=== PATIENT | female | born 1955 | race Caucasian/White ===

== ENCOUNTER 2024-04-03 06:58 | Emergency (ER) | payer MEDICARE, MEDICAID, SELFPAY ==
[2024-04-03 07:00] VITALS: BP 130/89; PULSE 92; RESP 20; TEMP 36.8; O2SAT 92
[2024-04-03 07:35] VITALS: PULSE 88; RESP 18; O2SAT 97; BMI 33.2
--- NOTE | 2024-04-03 08:20 | PD.EDSOB ---
ED SOB =RME/HPI General Chief Complaint: Shortness of Breath/Dyspnea Stated Complaint: SOB AND NEEDS DIALYSIS Time Seen by Provider: 04/03/24 07:31 Arrival date/time: 04/03/24 06:58 RME / HPI RME / HPI Narrative: DR. GOODEN MAIN ED EVALUATION: 68 year old female with past medical history significant for renal disease with dialysis T//Sat with Dr. Rodriguez and COPD on 3 L/min via a nasal cannula presents to the Emergency Department BIBA sent from dialysis unable to complete her dialysis session today due to catheter malfunction. Otherwise, patient is asymptomatic. Patient states that she is due to get it changed anyway. Related Data Home Medications ?Medication ?Instructions ?Recorded ?Confirmed furosemide 80 mg tablet 80 mg PO QDAY ##0 04/28/15 07/24/23 albuterol sulfate 90 mcg/actuation 1 puff inhalation Q6HR PRN 05/23/21 07/24/23 aerosol inhaler (Proventil HFA) SHORTNESS OF BREATH empagliflozin 10 mg tablet 10 mg PO QAM 05/23/21 07/24/23 (Jardiance) ergocalciferol (vitamin D2) 1,250 1,250 mcg PO QWEEK 05/23/21 07/24/23 mcg (50,000 unit) capsule omeprazole 20 mg capsule,delayed 20 mg PO QDAY 05/23/21 07/24/23 release gemfibrozil 600 mg tablet 600 mg PO 2XD 05/24/23 07/24/23 levothyroxine 75 mcg tablet 75 mcg PO QMORNING 05/24/23 07/24/23 potassium chloride 8 mEq 8 meq PO 3XD 05/24/23 07/24/23 tablet,extended release Previous Rx's ?Medication ?Instructions ?Recorded allopurinol 100 mg tablet 100 mg PO QDAY #30 tabs 06/03/23 hydralazine 25 mg tablet 50 mg (2 x 25 mg) PO TID #90 tabs 06/03/23 sevelamer carbonate 800 mg tablet 800 mg PO QDAY #30 tabs 06/03/23 sodium citrate-citric acid 500 30 ml PO TID #600 mL 06/03/23 mg-334 mg/5 mL oral solution Allergies Allergy/AdvReac Type Severity Reaction Status Date / Time benazepril Allergy Severe Rash Verified 02/27/17 19:06 ceftriaxone sodium Allergy Severe Rash Verified 02/27/17 19:06 Cephalosporins Allergy Severe Rash Verified 02/27/17 19:06 clindamycin Allergy Severe Rash Verified 02/27/17 19:06 codeine Allergy Severe Rash Verified 02/27/17 19:06 erythromycin base Allergy Severe Rash Verified 02/27/17 19:06 Penicillins Allergy Severe Rash Verified 02/27/17 19:06 Sulfa (Sulfonamide Allergy Severe Rash Verified 02/27/17 19:06 Antibiotics) sulfamethoxazole Allergy Severe Rash Verified 02/27/17 19:06 trimethoprim Allergy Severe Rash Verified 02/27/17 19:06 Review of Systems Review of Systems Systems Reviewed: All systems reviewed, normal except as documented Narrative Review of Systems: GEN: No fever, no chills, no weight loss EYES: No discharge, no visual changes, no pain HEENT: No ear pain, no congestion, no sore throat PULM: No shortness of breath, no cough, no congestion CV: No chest pain, no dyspnea on exertion, no palpitations GI: No nausea, no vomiting, no diarrhea, no pain, no constipation : No frequency, no urgency and no dysuria MUSC/SKEL: No joint pain, no back pain SKIN: No rash PSYCH: No hallucinations, no depression HEME/LYMPH: No easy bleeding or bruising tendencies NEURO: No weakness, no headache Past Medical History Past Medical History CARDIAC: Positive Cardiac Disorders, Hypercholesterolemia, Congestive Heart Failure and Hypertension RESPIRATORY: Positive Chronic Obstructive Pulmonary Disease (COPD) MUSCULOSKELETAL: Positive Musculoskeletal Disorders and Gout ENDOCRINE: Positive Diabetes Mellitus Type 2 and Hypothyroidism PSYCHO/SOCIAL: Positive Depression and Anxiety OTHER HISTORY: Positive Blood Transfusions Social History SMOKING STATUS: Current every day smoker SECOND HAND EXPOSURE: No SUBSTANCE USE: does not use ALCOHOL: Never ED Exam Narrative Physical exam: GENERAL APPEARANCE: AxOx4, generally well-appearing, no acute distress. HEENT: NC, AT. MMM. EOMI, clear conjunctiva, oropharynx clear. NECK: Supple without lymphadenopathy. No stiffness or restricted ROM. HEART: Normal rate and regular rhythm, normal S1/S1, no m/r/g LUNGS: Coarse rhonchi auscultated but in no respiratory distress. No wheezes are heard. ABDOMEN: Soft, nontender, nondistended with good bowel sounds heard. BACK: No midline C/T/L spine pain or deformity, No CVAT, no obvious deformity. EXTREMITIES: Without cyanosis, clubbing or edema. MUSCULOSKELETAL: FROM of all major joints, no chest tenderness NEUROLOGICAL: Grossly nonfocal. Alert and oriented, moving all 4 extremities. CN not formally tested but appear grossly intact. Observed to ambulate with normal gait. Skin: Warm and dry without any rash. Course Course Course Narrative: I offered the patient a breathing treatment for her coarse breathing but she denied and states she is asymptomatic and that is her normal breathing. Quality Measures none Orders Category Date Time Status BMP [Basic Metabolic Panel] Stat Lab 04/03/24 09:25 Completed Vital Signs Vital signs: Vital Signs Temperature 98.2 F 04/03/24 07:00 Pulse Rate 92 04/03/24 07:00 Respiratory Rate 20 04/03/24 07:00 Blood Pressure 130/89 H 04/03/24 07:00 Pulse Oximetry (%) 92 L 04/03/24 07:00 Oxygen Delivery Method Nasal Cannula 04/03/24 07:00 Oxygen Flow Rate 4 04/03/24 07:00 Procedures -ED Smoking Cessation Time Spent Discussing Smoking Cessation w/Patient (min): 3 Patient Acknowledges Need for Cessation: Yes Additional Comments: The patient was counseled as to the multiple risks to their health from continued use of tobacco products. It was explained that continuing to smoke may lead to multiple short and assisted negative health consequences, including but not limited to mouth/esophageal/lung cancer, COPD, and heart disease. The patient states they understand these risks, and also understand the options and resources available to them to help them stop smoking. Nicotine replacement therapy, local hotlines, and local resources were discussed as viable options for helping them stop their tobacco use. The total time spent counseling the patient regarding tobacco cessation was 3 minutes. Shortness of Breath / Dyspnea MDM Narrative MDM Narrative:: I, Kathrin Dumont, am scribing for and in the presence of Dr. Gooden. Patient data External records reviewed:: [facility] previous records (Reviewed last admission discharge dated 07/26/23, patient admitted for the following: Acute hyperkalemia) and EMS form Clinical information provided by:: patient and EMS Social determinants that could affect healthcare access:: other (specify) (tobacco smoker, light) Patient has the following chronic illnesses:: renal disease with dialysis T/Th/Sat with Dr. Rodriguez and COPD on 3 L/min via a nasal cannula How is presenting disease/condition affected by chronic disease/condition?: exacerbated by Evaluation data The following diagnostics were reviewed and interpreted by me:: lab results Lab and/or radiology exams considered but not ordered:: none Interpretation Summary: See above under MDM narrative. Creatine 8.2 eGFR 5 L* Medications / Prescriptions Medications or Prescriptions considered but not ordered:: none Medication administrations:: none Consultations Consultation(s) initiated? (list below): No Diagnosis Shortness of Breath Differential Diagnosis: congestive heart failure and other (dialysis malfunction, hyperkalemia) Most likely diagnosis given after review of the tests above:: Dialysis catheter clot or failure Admission Indicated Admission indicated?: not indicated Admission Request Was there a request for admission?: No Disposition Plan Disposition Plan: Discharge Discharge Attestation Discharge Attestation: The patient and all family members were given an opportunity to ask questions and understood the discharge instructions. Discharge instructions specifically effects, indications for sooner follow up or return to the emergency department, and the expected course of current diagnosis. Patient condition: Stable Discharge Plan Plan Patient Disposition: HOME (Self Care) Prescriptions/Referrals Prescriptions/Med Rec: No Action furosemide 80 MG tablet 80 mg PO QDAY Qty: 0 omeprazole 20 mg capsule,delayed release(DR/EC) 20 mg PO QDAY Patient Comments: TAKE ONE TABLET BY MOUTH EVERY DAY ergocalciferol (vitamin D2) 1,250 mcg (50,000 unit) capsule 1,250 mcg PO QWEEK Patient Comments: TAKE ONE CAPSULE BY MOUTH ONCE A WEEK Jardiance 10 mg tablet 10 mg PO QAM Patient Comments: TAKE ONE TABLET BY MOUTH EVERY MORNING albuterol sulfate [Proventil HFA] 6.7 GM HFA aerosol inhaler 1 puff Inhalation Q6HR PRN (Reason: SHORTNESS OF BREATH) levothyroxine 75 mcg tablet 75 mcg PO QMORNING Patient Comments: TAKE ONE TABLET BY MOUTH EVERY MORNING FOR THYROID potassium chloride 8 mEq tablet extended release 8 meq PO 3XD Patient Comments: TAKE ONE TABLET BY MOUTH THREE TIMES DAILY WITH FOOD gemfibrozil 600 mg tablet 600 mg PO 2XD Patient Comments: TAKE ONE TABLET BY MOUTH TWICE DAILY FOR CHOLESTEROL allopurinol 100 mg Tablet 100 mg PO QDAY Qty: 30 0RF sodium citrate-citric acid 500-334 mg/5 mL Solution 30 ml PO TID Qty: 600 0RF hydralazine 25 mg Tablet 50 mg PO TID Qty: 90 0RF sevelamer carbonate 800 mg tablet 800 mg PO QDAY Qty: 30 0RF Rx Instructions: must administer with a meal/food Referrals: No Primary/Family,Physician [Primary Care Provider] - In 1 week Problem List Clinical Impression: Dialysis catheter clot or failure Patient/Caregiver Discharge Instructions Education Materials: Caring for Your Hemodialysis Access Additional Instructions: Please return to the emergency department Friday morning in order to arrange for replacement of your permanent dialysis tunneled catheter. Feel free return to the emergency department sooner symptoms worsen or if he notes any new or concerning issues. Print Language: Tajik Stand Alone Forms: [facility]una Award Info., Patient Portal Info Letter
[2024-04-03 10:01] LABS: Anion Gap 14 (7-16); BUN/Creatinine Ratio 7 Ratio (12-20); Blood Urea Nitrogen 58 mg/dL (9-23); Calcium 8.6 mg/dL (8.3-10.6); Chloride 94 mMol/L (98-107); Creatinine (Component) 8.2 mg/dL (0.6-1.3); Estimated Creatinine Clearance 5.9 mL/min (>60); Glucose 104 mg/dL (74-106); Osmolality,Calculated 284 (275-295); Sodium 134 mMol/L (136-145); eGFR 5 See Note
[2024-04-03 10:13] VITALS: BP 121/66; PULSE 70; RESP 18; TEMP 36.7; O2SAT 97
== END 2024-04-03 12:43 | disposition home or self-care (01) ==
PROVIDERS: Emergency Provider Emergency Medicine
DX: T82.41XA Breakdown (mechanical) of vascular dialysis catheter, initial encounter (principal); N18.6 End stage renal disease; E11.22 Type 2 diabetes mellitus with diabetic chronic kidney disease; I13.2 Hypertensive heart and chronic kidney disease with heart failure and with stage 5 chronic kidney disease, or end stage renal disease; I50.9 Heart failure, unspecified; E03.9 Hypothyroidism, unspecified; J44.9 Chronic obstructive pulmonary disease, unspecified; Z99.2 Dependence on renal dialysis; Z99.81 Dependence on supplemental oxygen; F17.210 Nicotine dependence, cigarettes, uncomplicated; Y82.8 Other medical devices associated with adverse incidents; Y84.8 Other medical procedures as the cause of abnormal reaction of the patient, or of later complication, without mention of misadventure at the time of the procedure
CPT/HCPCS: 36415; 80048; 99283

== ENCOUNTER 2024-04-05 07:09 | Emergency (ER) | payer MEDICARE, MEDICAID, SELFPAY ==
[2024-04-05] VITALS (33 sets, daily range): BP systolic 92–171; BP diastolic 40–89; PULSE 60–83; RESP 12–21; TEMP 36–37; O2SAT 90–99; BMI 32.9
--- NOTE | 2024-04-05 | XR_ITS ---
Exam: Exchange of nonfunctioning right lumen dialysis catheter. INDICATION: Catheter not working. Date, 04/05/2024, 10:55 AM Fluoroscopy time: 0.9 minutes Dose: 11.14 mGy PROCEDURE: After discussion of risks and benefits informed consent was obtained. The area around the existing right-sided dialysis catheter was cleaned and draped in normal sterile surgical fashion. 10 cc 1% lidocaine was used for local anesthesia. Conscious sedation was begun with direct continuous nursing supervision. 0.035 wire was advanced through the catheter lumen into the IVC. The cuff was freed via blunt dissection. Catheter was removed with gentle traction. A new 23 cm cuff to tip 14 Czech dual lumen dialysis catheter was advanced over the wire and the wire removed. Distal catheter tips were appropriately positioned in the right atrium. Both ports flushed and aspirated easily and were filled with the appropriate amount of heparinized saline. Access site was covered with a sterile dressing. There were no immediate complications. IMPRESSION: Successful exchange of right IJ dual-lumen tunneled dialysis catheter as above. Catheter is ready for use.
--- NOTE | 2024-04-05 07:54 | PD.EDADULT ---
ED General RME/HPI General Chief complaint: General Adult/Misc Complain Stated complaint: RETURNING FOR REPLACEMENT OF DIALYSIS CATH Time Seen by Provider: 04/05/24 07:54 Arrival date/time: 04/05/24 07:09 RME / HPI RME / HPI narrative: This section includes all my notes and documentations, including HPI, PE, and ED course.? Martín Mayberry MD HPI: 68 year old female with history of COPD, ESRD on HD followed by Dr. Rodriguez presents to the ED for dialysis catheter replacement. Patient states she was brought here by ambulance from the dialysis clinic Monday 04/03 for dialysis port malfunction. States she did not complete her dialysis treatment and has not been dialyzed since. Evidently was advised to return today for port replacement. While in the ED reports shortness of breath and a cough that is slightly worse than her usual. Otherwise no other complaints reported. ROS: All negative except as documented in HPI. Physical Exam: General:? Alert and oriented.? No acute distress when remaining still.?? Eyes:? Conjunctivae and lids clear.? ENT:? No nasal congestion.? Neck:? Supple.? Heart:? RRR.? Lungs:? No respiratory distress.? Good air movement.? No rhonchi, wheezing, rales.?? Abdomen:? Soft and nontender.?? Legs:? No clubbing, cyanosis, edema.? Skin:? Warm and dry.?? Neuro:? Alert and oriented X 3.?? I reviewed all diagnostic test results. My interpretation of the EKG is?Sinus rhythm (57 bpm) with nonspecific ST-T changes. My interpretation of the chest x-ray is mild to moderate central vascular congestion. Blood tests remarkable for BUN 65, CR 9.7, and BNP 512. At this point, diagnoses include?ESRD, CHF. Patient's PICC line replaced by our IR. I discussed the case with our silk examiner, Dr. Rodriguez.? About the presentation and exam and diagnostics and treatments here.? And possible need of further care in the hospital.? Recommended outpatient urgent dialysis. Based on my best medical judgment, made decision no further evaluation or treatment indicated at this time.? Patient understands and agrees to the discharge instructions customized and printed, see below. Discharge Instructions from Dr. Mayberry printed for you: 1. After evaluation, your symptoms are due to CHF or fluid overload in your lungs. 2. Discussed your case with Dr. Rodriguez, your kidney specialist, who recommended urgent dialysis today at your dialysis center. She called to let the staff know. 3. See your primary care provider on 04/06/2024 for recheck and further care. Ask to review all test results and official radiology reports, to make sure you receive all necessary follow-ups and monitoring. To make sure there is no serious underlying heart condition, ask to help you get more tests for your heart that cannot be done here in the ER. Such as Holter Monitor (cardiac monitoring at home from a day to even a month), heart stress test (on treadmill or with medication), echocardiogram (imaging of your heart structures), heart catherization (checking for blockages in your heart arteries), and a referral to see a Bus Driver/Monitor. 4. Seek immediate medical care with worsening or with any concerns. Martín Mayberry MD Related Data Home Medications ?Medication ?Instructions ?Recorded ?Confirmed furosemide 80 mg tablet 80 mg PO QDAY ##0 04/27/07/24/23 albuterol sulfate 90 mcg/actuation 1 puff inhalation Q6HR PRN 05/23/21 07/24/23 aerosol inhaler (Proventil HFA) SHORTNESS OF BREATH empagliflozin 10 mg tablet 10 mg PO QAM 05/23/21 07/24/23 (Jardiance) ergocalciferol (vitamin D2) 1,250 1,250 mcg PO QWEEK 05/23/21 07/24/23 mcg (50,000 unit) capsule omeprazole 20 mg capsule,delayed 20 mg PO QDAY 05/23/21 07/24/23 release gemfibrozil 600 mg tablet 600 mg PO 2XD 05/24/23 07/24/23 levothyroxine 75 mcg tablet 75 mcg PO QMORNING 05/24/23 07/24/23 potassium chloride 8 mEq 8 meq PO 3XD 05/24/23 07/24/23 tablet,extended release Previous Rx's ?Medication ?Instructions ?Recorded allopurinol 100 mg tablet 100 mg PO QDAY #30 tabs 06/03/23 hydralazine 25 mg tablet 50 mg (2 x 25 mg) PO TID #90 tabs 06/03/23 sevelamer carbonate 800 mg tablet 800 mg PO QDAY #30 tabs 06/03/23 sodium citrate-citric acid 500 30 ml PO TID #600 mL 06/03/23 mg-334 mg/5 mL oral solution Allergies Allergy/AdvReac Type Severity Reaction Status Date / Time benazepril Allergy Severe Rash Verified 02/27/17 19:06 ceftriaxone sodium Allergy Severe Rash Verified 02/27/17 19:06 Cephalosporins Allergy Severe Rash Verified 02/27/17 19:06 clindamycin Allergy Severe Rash Verified 02/27/17 19:06 codeine Allergy Severe Rash Verified 02/27/17 19:06 erythromycin base Allergy Severe Rash Verified 02/27/17 19:06 Penicillins Allergy Severe Rash Verified 02/27/17 19:06 Sulfa (Sulfonamide Allergy Severe Rash Verified 02/27/17 19:06 Antibiotics) sulfamethoxazole Allergy Severe Rash Verified 02/27/17 19:06 trimethoprim Allergy Severe Rash Verified 02/27/17 19:06 Review of Systems Review of Systems Systems Reviewed: All systems reviewed, normal except as documented Past Medical History Past Medical History CARDIAC: Positive Cardiac Disorders, Hypercholesterolemia, Congestive Heart Failure and Hypertension RESPIRATORY: Positive Chronic Obstructive Pulmonary Disease (COPD) MUSCULOSKELETAL: Positive Musculoskeletal Disorders and Gout ENDOCRINE: Positive Diabetes Mellitus Type 2 and Hypothyroidism PSYCHO/SOCIAL: Positive Depression and Anxiety OTHER HISTORY: Positive Blood Transfusions Social History SMOKING STATUS: Light (< 1 pack/day) SECOND HAND EXPOSURE: No SUBSTANCE USE: does not use ED Exam Narrative Physical exam: As noted in HPI Course Course Course Narrative: chest xray ordered to help determine etiology of shortness of breath. Quality Measures none Orders Category Date Time Status Bedside COVID-19 Antigen Test NOW Care 04/05/24 07:56 Active Bedside Influenza A&B Antigen Test NOW Care 04/05/24 07:56 Completed Continuous Pulse Ox (IR/CCL) NOW Care 04/05/24 11:22 Active EKG (ED ONLY) *Do not use* NOW Care 04/05/24 07:57 Completed Saline [Insert IV] NOW Care 04/05/24 07:56 Active EKG (ED Only) Stat Exams 04/05/24 07:57 Draft IR dialysis catheter exchange Stat Exams 04/05/24 Taken XR chest 1V Stat Exams 04/05/24 07:57 Completed ABG [Arterial Blood Gas] Stat Lab 04/05/24 08:44 Completed BNP [B-Type Natriuretic Peptide] Stat Lab 04/05/24 08:06 Completed CBC Stat Lab 04/05/24 08:06 Completed CMP [Comprehensive Metabolic Panel] Stat Lab 04/05/24 08:06 Completed Magnesium Stat Lab 04/05/24 08:06 Completed PT [Prothrombin Time with INR] Stat Lab 04/05/24 08:06 Completed PTT [Partial Thromboplastin Time] Stat Lab 04/05/24 08:06 Completed TSH [Thyroid Stimulating Hormone] Stat Lab 04/05/24 08:06 Completed Troponin I Stat Lab 04/05/24 08:06 Completed Albuterol/Ipratr Rt Rebeka [Duoneb Rt Rebeka] Med 04/05/24 07:57 Discontinued 3 ml INH X1 ONE Furosemide Inj [Lasix Inj] Med 04/05/24 07:57 Discontinued 80 mg IVP X1 ONE Heparin 1000 UNIT/ML-1 ML [Heparin 1000 Unit/ml-1 ml] Med 04/05/24 10:36 Discontinued 4,000 unit .ROUTE .STK-MED ONE Heparin Inj Med 04/05/24 11:22 Discontinued 3,500 unit INTRACATH X1 ONE Heparin Sod Lock Syr [Hep-Lock 100 UNIT/ML SYR] Med 04/05/24 10:36 Discontinued 500 unit .ROUTE .STK-MED ONE Heparin Sod Lock Syr [Hep-Lock 100 UNIT/ML SYR] Med 04/05/24 11:22 Discontinued 500 unit STFIELD X1 ONE Lidocaine 1% Pf 30 ml [Xylocaine 1% Pf 30 ml] Med 04/05/24 11:22 Discontinued 18 ml INFL X1 ONE Lidocaine 1% Pf 30 ml [Xylocaine 1% Pf 30 ml] Med 04/05/24 10:30 Discontinued 30 ml .ROUTE .STK-MED ONE MethylPREDNISolone.* [SoluMEDROL Inj] Med 04/05/24 07:57 Discontinued 125 mg IVP X1 ONE Midazolam Inj [Versed Inj] Med 04/05/24 11:45 Discontinued 1 mg IV X1 ONE Midazolam Inj [Versed Inj] Med 04/05/24 10:30 Discontinued 4 mg .ROUTE .STK-MED ONE NALOXONE INJ (Vial) [Narcan Inj (Vial)] Med 04/05/24 10:30 Discontinued 0.4 mg .ROUTE .STK-MED ONE Ondansetron Inj [Zofran Inj] Med 04/05/24 10:31 Discontinued 4 mg .ROUTE .STK-MED ONE Sodium Chloride 0.9% 250 ml [Ns] 250 ml Med 04/05/24 11:30 Active IV 20 mls/hr fentaNYL INJ [Sublimaze Inj] Med 04/05/24 10:30 Discontinued 200 mcg .ROUTE .STK-MED ONE fentaNYL INJ [Sublimaze Inj] Med 04/05/24 11:45 Discontinued 50 mcg IVP X1 ONE flumazeniL [Romazicon Inj] Med 04/05/24 10:30 Discontinued 1 mg .ROUTE .STK-MED ONE Vital Signs Vital signs: Vital Signs Temperature 98.0 F 04/05/24 07:38 Pulse Rate 69 04/05/24 07:38 Respiratory Rate 20 04/05/24 07:38 Blood Pressure 171/89 H 04/05/24 07:38 Pulse Oximetry (%) 92 L 04/05/24 07:38 Oxygen Delivery Method Nasal Cannula 04/05/24 07:38 Pulse ox is 92% on room air which is low. [facility] Patient data External records reviewed:: [facility] previous records (I reviewed ED visit on 04/03/2024) Clinical information provided by:: patient Social determinants that could affect healthcare access:: other (specify) (Active tobacco smoker) Patient has the following chronic illnesses:: COPD, ESRD on HD T//Fri followed by Dr. Rodriguez How is presenting disease/condition affected by chronic disease/condition?: exacerbated by Evaluation data The following diagnostics were reviewed and interpreted by me:: lab results, radiology exam(s) and EKG tracing(s) (My interpretation of the EKG is: Sinus rhythm (57 bpm) with nonspecific ST-T changes. Martín Mayberry MD) Lab and/or radiology exams considered but not ordered:: None Interpretation Summary: My interpretation of chest xray is mild to moderate central vascular congestion Medications Medications considered but not ordered:: None Medication administrations:: Medication Administration History Sodium Chloride (Ns) 250 mls @ 20 mls/hr IV .[id number] JOIE Stop: 04/05/24 23:59 Discontinued Medications Albuterol/Ipratropium (Albuterol/Ipratropium (Duoneb) Rt Rebeka 3 Ml Nebu) 3 ml INH X1 ONE Stop: 04/05/24 07:58 Last Admin: 04/05/24 08:33 Dose: 3 ml Documented By: MARY KAY Fentanyl Citrate (Fentanyl Cit Inj 50 Mcg/Ml Amp 2ml) Confirm Administered Dose 200 mcg .ROUTE .STK-MED ONE Stop: 04/05/24 10:31 Last Admin: 04/05/24 12:23 Dose: Not Given Documented By: LS Non-Admin Reason: Duplicate Medication on eMAR Fentanyl Citrate (Fentanyl Cit Inj 50 Mcg/Ml Amp 2ml) 50 mcg IVP X1 ONE Stop: 04/05/24 11:46 Last Admin: 04/05/24 11:45 Dose: 50 mcg Documented By: ANIA Flumazenil (Flumazenil Inj 0.1 Mg/Ml Vial 10 Ml) Confirm Administered Dose 1 mg .ROUTE .STK-MED ONE Stop: 04/05/24 10:31 Last Admin: 04/05/24 12:23 Dose: Not Given Documented By: ANIA Non-Admin Reason: not needed Furosemide (Furosemide Inj 10 Mg/Ml 4ml Vial) 80 mg IVP X1 ONE Stop: 04/05/24 07:58 Last Admin: 04/05/24 08:47 Dose: 80 mg Documented By: ASHLEY Heparin Sodium (Beef Lung) (Heparin Sod Lock Syr 100 Unit/Ml) Confirm Administered Dose 500 unit .ROUTE .STK-MED ONE Stop: 04/05/24 10:37 Last Admin: 04/05/24 12:24 Dose: Not Given Documented By: ANIA Non-Admin Reason: Duplicate Medication on eMAR Heparin Sodium (Beef Lung) (Heparin Sod Lock Syr 100 Unit/Ml) 500 unit STFIELD X1 ONE Stop: 04/05/24 11:23 Last Admin: 04/05/24 11:22 Dose: 500 unit Documented By: ANIA Comments: to sterile field Heparin Sodium (Porcine) (Heparin Sod Inj 1000 Unit/Ml Vial) Confirm Administered Dose 4,000 unit .ROUTE .STK-MED ONE Stop: 04/05/24 10:37 Last Admin: 04/05/24 12:24 Dose: Not Given Documented By: LS Non-Admin Reason: Duplicate Medication on eMAR Heparin Sodium (Porcine) (Heparin Sod Inj 5000 Unit/Ml Vial 10 Ml) 3,500 unit INTRACATH X1 ONE Stop: 04/05/24 11:23 Last Admin: 04/05/24 11:55 Dose: 3,500 unit Documented By: ANIA Co-signed By: ERASTO Comments: Blue: 1.8 Red: 1.7 Lidocaine HCl (Lidocaine Inj Pf 1% 30 Ml Vial) Confirm Administered Dose 30 ml .ROUTE .STK-MED ONE Stop: 04/05/24 10:31 Last Admin: 04/05/24 12:23 Dose: Not Given Documented By: ANIA Non-Admin Reason: Duplicate Medication on eMAR Lidocaine HCl (Lidocaine Inj Pf 1% 30 Ml Vial) 18 ml INFL X1 ONE Stop: 04/05/24 11:23 Last Admin: 04/05/24 11:45 Dose: 18 ml Documented By: ANIA Comments: administered by Dr. Cross Methylprednisolone Sodium Succinate (Methylprednisolone Sod Succ 62.5 Mg/Ml 2ml Vial) 125 mg IVP X1 ONE Stop: 04/05/24 07:58 Last Admin: 04/05/24 08:48 Dose: 125 mg Documented By: ASHLEY Midazolam HCl (Midazolam Inj 1 Mg/Ml Vial 2 Ml) Confirm Administered Dose 4 mg .ROUTE .STK-MED ONE Stop: 04/05/24 10:31 Last Admin: 04/05/24 12:23 Dose: Not Given Documented By: ANIA Non-Admin Reason: Duplicate Medication on eMAR Midazolam HCl (Midazolam Inj 1 Mg/Ml Vial 2 Ml) 1 mg IV X1 ONE Stop: 04/05/24 11:46 Last Admin: 04/05/24 11:45 Dose: 1 mg Documented By: ANIA Naloxone HCl (Naloxone Inj 0.4 Mg/Ml Vial) Confirm Administered Dose 0.4 mg .ROUTE .STK-MED ONE Stop: 04/05/24 10:31 Last Admin: 04/05/24 12:24 Dose: Not Given Documented By: ANIA Non-Admin Reason: not needed Ondansetron HCl (Ondansetron Inj 2 Mg/Ml Inj 2 Ml) Confirm Administered Dose 4 mg .ROUTE .STK-MED ONE Stop: 04/05/24 10:32 Last Admin: 04/05/24 12:24 Dose: Not Given Documented By: ANIA Non-Admin Reason: not needed Given Duoneb, Lasix, Solumedrol Consultations Consultation(s) initiated? (list below): Yes Consultation #1 (Physician, Specialty, Details): I spoke with patients silk examiner Dr. Rodriguez. Discussed patients HPI, ED course, labs, and radiology results. She recommends placing an IR order for dialysis catheter replacement and can be discharged home after. Time: 09:50 Diagnosis Differential Diagnosis ED Complaint MDM: Fluid overload, URI, pneumonia, dialysis port malfunction Most likely diagnosis given after review of the tests above:: CHF Admission Indicated Admission indicated?: not indicated Explain why admission is indicated or not indicated:: Admission not indicated. Admission Request Was there a request for admission?: No Disposition Plan Disposition Plan: Discharge Discharge Attestation Discharge Attestation: The patient and all family members were given an opportunity to ask questions and understood the discharge instructions. Discharge instructions specifically effects, indications for sooner follow up or return to the emergency department, and the expected course of current diagnosis. Patient condition: Stable Medical Decision Making Differential Diagnosis Differential Diagnosis: Fluid overload, URI, pneumonia, dialysis port malfunction Lab Data 04/05/24 08:06 04/05/24 08:06 Labs: Lab Results 04/05/24 04/05/24 Range/Units 08:06 08:44 WBC 15.4 H (3.6-11.0) Thou/mm3 RBC 4.81 (4.00-5.20) Miln/mm3 Hgb 15.5 (12.0-16.0) g/dL Hct 46.7 H (36.0-46.0) % MCV 97 (80-100) fL MCH 32.2 (25.0-35.0) pg MCHC 33.2 (31.0-37.0) g/dl RDW Std Deviation 51.1 H (36.4-46.3) fL Plt Count 230 (140-440) Thou/mm3 Neut % (Auto) 68 (37-80) % Lymph % (Auto) 24 (10-50) % [place] % (Auto) 6 (0-12) % Eos % (Auto) 1 (0-10) % Baso % (Auto) 1 (0-2.5) % Neut # (Auto) 10.4 H (1.8-7.7) Thou/mm3 Lymph # (Auto) 3.7 (1.0-4.8) Thou/mm3 [place] # (Auto) 0.9 H (0.0-0.8) Thou/mm3 Eos # (Auto) 0.2 (0.0-0.5) Thou/mm3 Baso # (Auto) 0.1 (0.0-0.2) Thou/mm3 Immature Gran # (Auto) 0.10 H (0.00-0.00) Thou/mm3 Absolute Nucleated RBC 0.00 (0.00-0.00) Thou/mm3 Immature Gran % 1 H (0-0) % Nucleated RBC % 0 (0) /100 WBC PT 10.9 (9.0-12.2) Seconds INR 1.0 (0.9-1.3) APTT 29.9 (22.0-36.0) Seconds Puncture Site Right Radial ABG pH 7.37 (7.35-7.45) ABG pCO2 38 (32.0-48.0) mmHg ABG pO2 68 L (83-108) mmHg ABG HCO3 22 (20-26) mEq/L ABG O2 Saturation 94 (91-98) % ABG Base Excess -3 (-3-3) FiO2 21 % Sodium 137 (136-145) mMol/L Potassium 4.6 D (3.4-5.1) mMol/L Chloride 98 (98-107) mMol/L Carbon Dioxide 23.1 (20.0-31.0) mMol/L Anion Gap 16 (7-16) BUN 65 H (9-23) mg/dL Creatinine 9.7 H* D (0.6-1.3) mg/dL Estim Creat Clear Calc 4.8 L (>60) mL/min eGFR 4 L* (60 - ) See Note BUN/Creatinine Ratio 7 L (12-20) Ratio Glucose 128 H (74-106) mg/dL Calculated Osmolality 294 (275-295) Calcium 9.3 (8.3-10.6) mg/dL Corrected Calcium 9.3 (8.5-10.1) mg/dL Magnesium 2.5 (1.6-2.6) mg/dL Total Bilirubin 0.2 L (0.3-1.2) mg/dL AST 11 (0-34) U/L ALT 8 L (10-49) U/L Alkaline Phosphatase 235 H (46-116) U/L Troponin I 0.035 (0.0-0.045) ng/mL B-Natriuretic Peptide 512 H* (0-100) pg/mL Total Protein 6.7 (5.7-8.2) gm/dL Albumin 4.3 (3.4-4.8) gm/dL Globulin 2.4 (2.3-3.5) gm/dL Albumin/Globulin Ratio 1.8 (1.2-2.2) TSH 1.89 (0.55-4.78) uIU/mL Discharge Plan Plan Patient Disposition: HOME (Self Care) Prescriptions/Referrals Prescriptions/Med Rec: No Action furosemide 80 MG tablet 80 mg PO QDAY Qty: 0 omeprazole 20 mg capsule,delayed release(DR/EC) 20 mg PO QDAY Patient Comments: TAKE ONE TABLET BY MOUTH EVERY DAY ergocalciferol (vitamin D2) 1,250 mcg (50,000 unit) capsule 1,250 mcg PO QWEEK Patient Comments: TAKE ONE CAPSULE BY MOUTH ONCE A WEEK Jardiance 10 mg tablet 10 mg PO QAM Patient Comments: TAKE ONE TABLET BY MOUTH EVERY MORNING albuterol sulfate [Proventil HFA] 6.7 GM HFA aerosol inhaler 1 puff Inhalation Q6HR PRN (Reason: SHORTNESS OF BREATH) levothyroxine 75 mcg tablet 75 mcg PO QMORNING Patient Comments: TAKE ONE TABLET BY MOUTH EVERY MORNING FOR THYROID potassium chloride 8 mEq tablet extended release 8 meq PO 3XD Patient Comments: TAKE ONE TABLET BY MOUTH THREE TIMES DAILY WITH FOOD gemfibrozil 600 mg tablet 600 mg PO 2XD Patient Comments: TAKE ONE TABLET BY MOUTH TWICE DAILY FOR CHOLESTEROL allopurinol 100 mg Tablet 100 mg PO QDAY Qty: 30 0RF sodium citrate-citric acid 500-334 mg/5 mL Solution 30 ml PO TID Qty: 600 0RF hydralazine 25 mg Tablet 50 mg PO TID Qty: 90 0RF sevelamer carbonate 800 mg tablet 800 mg PO QDAY Qty: 30 0RF Rx Instructions: must administer with a meal/food Referrals: Craol Mckeon PA-C [Primary Care Provider] - In 1 week Problem List Clinical Impression: End-stage renal disease (ESRD), CHF (congestive heart failure) Patient/Caregiver Discharge Instructions Discharge Activity: activity as tolerated Education Materials: ED CHF Left Side, ED Heart Failure Congestive Right, ED Chronic Kidney Disease (CKD) Additional Instructions: Discharge Instructions from Dr. Mayberry printed for you: 1. After evaluation, your symptoms are due to CHF or fluid overload in your lungs. 2. Discussed your case with Dr. Rodriguez, your kidney specialist, who recommended urgent dialysis today at your dialysis center. She called to let the staff know. 3. See your primary care provider on 04/06/2024 for recheck and further care. Ask to review all test results and official radiology reports, to make sure you receive all necessary follow-ups and monitoring. To make sure there is no serious underlying heart condition, ask to help you get more tests for your heart that cannot be done here in the ER. Such as Holter Monitor (cardiac monitoring at home from a day to even a month), heart stress test (on treadmill or with medication), echocardiogram (imaging of your heart structures), heart catherization (checking for blockages in your heart arteries), and a referral to see a Bus Driver/Monitor. 4. Seek immediate medical care with worsening or with any concerns. Print Language: Bahamian Stand Alone Forms: [employer]una Award Info., Patient Portal Info Letter
--- NOTE | 2024-04-05 07:57 | XR_ITS ---
Examination: AP chest single view Technique one AP upright chest single view Exam date and time: April 05, 2024 0828 hrs. Comparison July 16, 2023 Indications: Shortness of breath today. Findings: Mild prominence left ventricle Central pulmonary vessels are prominent No lobar pneumonia Mild osteopenia Thousand catheter satisfactory position Impression: Mild to moderate central vascular congestion
--- NOTE | 2024-04-05 07:57 | EKG_ITS ---
[facility] Test Date: 2024-04-05 Pat Name: SAIRA THIBODEAUX Department: Room: - Gender: Female [employer] Consultant: : [id number] Requested By: Martín Christian Order Number: [id number] Reading MD: Martín Christian Measurements Intervals [place] Rate: 57 P: -88 [place]: 105 QRS: -35 QRSD: 109 T: 79 QT: 443 QTc: 432 Interpretive Statements JUNCTIONAL BRADYCARDIA WITH OCCASIONAL SUPRAVENTRICULAR PREMATURE COMPLEXES LEFT AXIS DEVIATION [QRS AXIS < -30] Compared to ECG 07/25/2023 14:11:24 Sinus bradycardia no longer present /store/[email or web address]/[id number].pdf
[2024-04-05 08:27] LABS: Basophils # (Auto) 0.1 Thou/mm3 (0.0-0.2); Basophils % (Auto) 1 % (0-2.5); Eosinophils # (Auto) 0.2 Thou/mm3 (0.0-0.5); Eosinophils % (Auto) 1 % (0-10); Hematocrit 46.7 % (36.0-46.0); Hemoglobin 15.5 g/dL (12.0-16.0); Immature Granulocytes % (Auto) 1 % (0-0); Lymphocytes # (Auto) 3.7 Thou/mm3 (1.0-4.8); Lymphocytes % (Auto) 24 % (10-50); Mean Corpuscular HGB Conc 33.2 g/dl (31.0-37.0); Mean Corpuscular Hemoglobin 32.2 pg (25.0-35.0); Mean Corpuscular Volume 97 fL (80-100); Monocytes # (Auto) 0.9 Thou/mm3 (0.0-0.8); Monocytes % (Auto) 6 % (0-12); Neutrophils # (Auto) 10.4 Thou/mm3 (1.8-7.7); Neutrophils % (Auto) 68 % (37-80); Nucleated Red Blood Cell % 0 /100 WBC (0); Platelet Count 230 Thou/mm3 (140-440); RDW Standard Deviation 51.1 fL (36.4-46.3); Red Blood Count 4.81 Miln/mm3 (4.00-5.20); White Blood Count 15.4 Thou/mm3 (3.6-11.0)
[2024-04-05] MEDS: ALBUTEROL/IPRATROPIUM (Duoneb) RT SOL 3 ML NEBU INH (08:33)
[2024-04-05] MEDS: FUROSEMIDE INJ 10 MG/ML 4ML VIAL 80 MG IVP (08:47)
[2024-04-05] MEDS: MethylPREDNISolone SOD SUCC 62.5 MG/ML 2ML VIAL 125 MG IVP (08:48)
[2024-04-05 08:49] LABS: Base Excess -3 (-3-3); HCO3 22 mEq/L (20-26); Inspired Oxygen, FIO2 21 %; O2 Saturation 94 % (91-98); PCO2 38 mmHg (32.0-48.0); PO2 68 mmHg (83-108); pH, Arterial 7.37 (7.35-7.45)
[2024-04-05 08:54] LABS: Allen Test Performed/OK; Puncture Site Right Radial
[2024-04-05 08:55] LABS: B-Type Natriuretic Peptide 512 pg/mL (0-100)
[2024-04-05 08:59] LABS: Alanine Aminotransferase 8 U/L (10-49); Albumin, Serum 4.3 gm/dL (3.4-4.8); Albumin/Globulin Ratio 1.8 (1.2-2.2); Alkaline Phosphatase 235 U/L (46-116); Anion Gap 16 (7-16); Aspartate Amino Transferase 11 U/L (0-34); BUN/Creatinine Ratio 7 Ratio (12-20); Bilirubin,Total 0.2 mg/dL (0.3-1.2); Blood Urea Nitrogen 65 mg/dL (9-23); Calcium 9.3 mg/dL (8.3-10.6); Calcium (Corrected) 9.3 mg/dL (8.5-10.1); Carbon Dioxide 23.1 mMol/L (20.0-31.0); Chloride 98 mMol/L (98-107); Creatinine (Component) 9.7 mg/dL (0.6-1.3); Estimated Creatinine Clearance 4.8 mL/min (>60); Globulin 2.4 gm/dL (2.3-3.5); Glucose 128 mg/dL (74-106); Magnesium 2.5 mg/dL (1.6-2.6); Osmolality,Calculated 294 (275-295); Potassium 4.6 mMol/L (3.4-5.1); Sodium 137 mMol/L (136-145); Thyroid Stimulating Hormone 1.89 uIU/mL (0.55-4.78); Total Protein 6.7 gm/dL (5.7-8.2); Troponin I 0.035 ng/mL (0.0-0.045); eGFR 4 See Note
[2024-04-05 10:21] LABS: Partial Thromboplastin Time 29.9 Seconds (22.0-36.0); Prothrombin Time 10.9 Seconds (9.0-12.2)
--- NOTE | 2024-04-05 11:01 | PC.NURSE ---
Pt was taken to construction or leak gang laborer at this time
[2024-04-05] MEDS: HEPARIN SOD LOCK SYR 100 UNIT/ML 500 UNIT STFIELD (11:22)
[2024-04-05] MEDS: fentaNYL CIT INJ 50 mCg/ML AMP 2ML IVP (11:45)
[2024-04-05] MEDS: MIDAZOLAM INJ 1 MG/ML VIAL 2 ML IV (11:45)
[2024-04-05] MEDS: LIDOCAINE INJ PF 1% 30 ML VIAL 18 ML INFL (11:45)
[2024-04-05] MEDS: HEPARIN SOD INJ 5000 UNIT/ML VIAL 10 ML 3500 UNIT INTRACATH (11:55)
--- NOTE | 2024-04-05 12:28 | PC.NURSE ---
PT RETURNED FROM [facility]MINAL [facility]PERVISOR AFTER GETTING VASCATH REPLACEMENT PT TOLLERATED WELL
--- NOTE | 2024-04-05 13:31 | PC.NURSE ---
PT WAS TAKEN TO DIALYSIS AT THIS TIME
--- NOTE | 2024-04-05 14:24 | PD.NEPHCONS ---
History of Present Illness Data of Consult Consult date: 04/05/24 Requesting Physician: Primary Care Provider: Carol Mckeon PA-C Consult Narrative Reason for consult: ESRD, need for dialysis History of present illness: Ms. Coley is a 68-year-old pleasant lady with a longstanding history of diabetes, hypertension, COPD on home oxygen at night, end-stage renal disease on hemodialysis Friday, , Friday under my care presented to the dialysis unit for a scheduled dialysis. Her dialysis catheter was were not working. Scented to the ER for exchange. Patient had catheter exchanged however she started having shortness of breath and renal consultation requested by ER provider for need for emergency dialysis. Patient currently seen on dialysis. Patient allergic to multiple medications. Home medications included allopurinol, clonidine, vitamin D, Lasix, gemfibrozil, hydralazine, Jardiance, levothyroxine, losartan, omeprazole, potassium, sevelamer, Bicitra Patient clinically seems to be short of breath. In the ED, labs and medications have been reviewed. cc:: cc: Review of Systems Review of Systems Narrative Review of Systems: CONSTITUTIONAL: Patient denies any fever, chills. HEENT: Denies any visual disturbances or hearing problems. CARDIOVASCULAR: Patient denies any chest pain. Complaining of shortness of breath, swelling in the lower extremities. PULMONARY: Patient complaining of shortness of breath-on oxygen GASTROINTESTINAL: Patient denies any abdominal pain, constipation, nausea, vomiting, diarrhea. GENITOURINARY: Patient denies any urinary symptoms of burning or frequency or hematuria, denies any form in the urine. SKIN: Denies any rash. MUSCULOSKELETAL: admits gait imbalance NEUROLOGICAL: Denies any neurological problems of strokes, seizures or confusion. Denies any memory problems. PSYCHIATRIC: Denies any depression or anxiety. LYMPHATICS : No lymphadenopathy Past Medical History Past Medical History NEUROLOGIC: Negative Neurological Disorders CARDIAC: Positive Cardiac Disorders, Hypercholesterolemia, Congestive Heart Failure and Hypertension RESPIRATORY: Positive Chronic Obstructive Pulmonary Disease (COPD) GASTROINTESTINAL: Negative Gastrointestinal Disorders GENITOURINARY: Negative Genitourinary Disorders or Renal Disease MUSCULOSKELETAL: Positive Musculoskeletal Disorders and Gout ENDOCRINE: Positive Diabetes Mellitus Type 2 and Hypothyroidism; Negative Diabetes Mellitus Type 1 HEMATOLOGIC: Negative Blood Disorders PSYCHO/SOCIAL: Positive Depression and Anxiety OTHER HISTORY: Positive Blood Transfusions; Negative Autoimmune Disease Social History SMOKING STATUS: Light (< 1 pack/day) SECOND HAND EXPOSURE: No SUBSTANCE USE: does not use Meds Home Medications and Allergies Home Medications ?Medication ?Instructions ?Recorded ?Confirmed ?Type furosemide 80 mg tablet 80 mg PO QDAY ##0 04/28/15 07/24/23 History albuterol sulfate 90 mcg/actuation 1 puff inhalation Q6HR PRN 05/23/21 07/24/23 History aerosol inhaler (Proventil HFA) SHORTNESS OF BREATH empagliflozin 10 mg tablet 10 mg PO QAM 05/23/21 07/24/23 History (Jardiance) ergocalciferol (vitamin D2) 1,250 1,250 mcg PO QWEEK 05/23/21 07/24/23 History mcg (50,000 unit) capsule omeprazole 20 mg capsule,delayed 20 mg PO QDAY 05/23/21 07/24/23 History release gemfibrozil 600 mg tablet 600 mg PO 2XD 05/24/23 07/24/23 History levothyroxine 75 mcg tablet 75 mcg PO QMORNING 05/24/23 07/24/23 History potassium chloride 8 mEq 8 meq PO 3XD 05/24/23 07/24/23 History tablet,extended release Allergies Allergy/AdvReac Type Severity Reaction Status Date / Time benazepril Allergy Severe Rash Verified 02/27/17 19:06 ceftriaxone sodium Allergy Severe Rash Verified 02/27/17 19:06 Cephalosporins Allergy Severe Rash Verified 02/27/17 19:06 clindamycin Allergy Severe Rash Verified 02/27/17 19:06 codeine Allergy Severe Rash Verified 02/27/17 19:06 erythromycin base Allergy Severe Rash Verified 02/27/17 19:06 Penicillins Allergy Severe Rash Verified 02/27/17 19:06 Sulfa (Sulfonamide Allergy Severe Rash Verified 02/27/17 19:06 Antibiotics) sulfamethoxazole Allergy Severe Rash Verified 02/27/17 19:06 trimethoprim Allergy Severe Rash Verified 02/27/17 19:06 Exam Vital Signs Temp Pulse Resp BP Pulse Ox O2 Del Method O2 Flow Rate 36.8 C 74 18 116/72 95 Nasal Cannula 2 04/05/24 19:10 04/05/24 19:10 04/05/24 19:10 04/05/24 19:10 04/05/24 19:10 04/05/24 12:15 04/05/24 18:40 Narrative Exam GENERAL APPEARANCE: Patient seems to be comfortable, adequately hydrated and nourished. On dialysis HEENT: EOMI, PERRLA NECK: Neck supple, no JVD or bruit CARDIOVASCULAR: Heart regular, no murmurs LUNGS/CHEST: Bilateral crackles noted ABDOMEN: Soft, nontender, nondistended. No masses. Normal bowel sounds. EXTREMITIES: No edema, clubbing or cyanosis. SKIN: Stasis changes noted in the lower extremities MUSCULOSKELETAL: Musculoskeletal exam normal NEUROLOGICAL : No neurological deficits Results Labs 04/05/24 08:06 04/05/24 08:06 ABG Interpretation ABG results: 04/05/24 08:44 ABG pH 7.37 ABG pCO2 38 ABG pO2 68 L ABG HCO3 22 ABG O2 Saturation 94 ABG Base Excess -3 Assessment & Plan Assessment and plan (1) End stage renal failure on dialysis: Status: Acute Assessment and plan: ESRD secondary to diabetic/hypertensive nephrosclerosis. Patient had a malfunctioning dialysis catheter which was changed. patient has fluid overloaded. patient currently seen on dialysis. Tolerating dialysis without any problems. Hemodialysis for 3 hours, 2K, ultrafiltration 2-3 L, Epogen 6000, no heparin ordered. Plan of care discussed with the dialysis nurse. Please see dialysis flowsheet for further details. (2) Diabetes mellitus type 2 in obese: Status: Acute Assessment and plan: Accu-Cheks, sliding scale, consistent carb low diet (3) Hypertension: Status: Acute Assessment and plan: Resume home blood pressure medication (4) Hyperlipidemia: Status: Acute Assessment and plan: On statin Additional Assessment & Plan Additional Plan: Thank you Dr. Mayberry for allowing me to participate in the care of Ms. coley
--- NOTE | 2024-04-05 14:41 | PC.NURSE ---
Extracorporeal/ venous chamber clotted. tx paused, all blood returned. Will set up new lines. HD catheter good. Dr Rodriguez ordered to use heparin bolus and maintenance in machine to prevent lines from clotting.
--- NOTE | 2024-04-05 14:46 | PC.NURSE ---
tx re-started with new lines set up. UF goal set at 2.5 L as tolerated. Will monitor
[2024-04-05] MEDS: HEPARIN SOD INJ 1000 UNIT/ML VIAL 10 ML 2000 UNIT IV (14:56)
--- NOTE | 2024-04-05 15:32 | PC.NURSE ---
Pt has 1.5 hr left on HD. BP trending down 92/58, HR 69. UF goal reduced to 1900 ml as tolerated. UFR at 440ml/hr. Pt no complaints. Will monitor.
== END 2024-04-05 19:10 | disposition home or self-care (01) ==
PROVIDERS: Radiology Diagnostic Radiology; Emergency Provider Emergency Medicine; PCP Physician Assistant
DX: E11.22 Type 2 diabetes mellitus with diabetic chronic kidney disease (principal); N18.6 End stage renal disease; I50.9 Heart failure, unspecified; Z99.2 Dependence on renal dialysis
CPT/HCPCS: 36581; 36415; 36600; 71045; 80053; 82803; 83735; 83880; 84443; 84484; 85025; 85610; 85730; 87400; 87811; 90935; 93005; 94640; 96374; 96375; 99285; A9270; C1750; C1769; J1642; J1643; J1940; J2250; J2919; J3010; J3490; J7050; G0257

== ENCOUNTER 2024-12-08 23:48 | Emergency (ER) | payer MEDICARE, MEDICAID, SELFPAY ==
[2024-12-08 23:51] VITALS: BMI 24.9
[2024-12-08 23:53] VITALS: BP 154/87; PULSE 64; RESP 19; TEMP 36.4; O2SAT 91
[2024-12-09] VITALS: PULSE 80; RESP 20; O2SAT 93
[2024-12-09 00:06] VITALS: BP 180/96; PULSE 65; RESP 14; TEMP 37; O2SAT 99
--- NOTE | 2024-12-09 00:46 | PD.EDADULT ---
ED General RME/HPI General Chief complaint: General Adult/Misc Complain Stated complaint: LEFT HIP PAIN Time Seen by Provider: 12/09/24 00:47 Arrival date/time: 12/08/24 23:48 RME / HPI RME / HPI narrative: Dr. Chang?s Main ED Evaluation: 69yo female with a history of COPD, CHF, ESRD on HD T//Fri followed by Dr. Rodriguez, HTN, DM BIBA from home presents to the ED for a chief complaint of left hip pain x just [employer]. Patient states her pain radiates down her leg. Patient denies any chest pain, abdominal pain, back pain, or any other associated symptoms. Patient denies any falls or injuries. Patient denies any history of similar symptoms. Patient is a tobacco smoker. Related Data Home Medications ?Medication ?Instructions ?Recorded ?Confirmed furosemide 80 mg tablet 80 mg PO QDAY ##0 04/28/15 07/24/23 albuterol sulfate 90 mcg/actuation 1 puff inhalation Q6HR PRN 05/23/21 07/24/23 aerosol inhaler (Proventil HFA) SHORTNESS OF BREATH empagliflozin 10 mg tablet 10 mg PO QAM 05/23/21 07/24/23 (Jardiance) ergocalciferol (vitamin D2) 1,250 1,250 mcg PO QWEEK 05/23/21 07/24/23 mcg (50,000 unit) capsule omeprazole 20 mg capsule,delayed 20 mg PO QDAY 05/23/21 07/24/23 release gemfibrozil 600 mg tablet 600 mg PO 2XD 05/24/23 07/24/23 levothyroxine 75 mcg tablet 75 mcg PO QMORNING 05/24/23 07/24/23 potassium chloride 8 mEq 8 meq PO 3XD 05/24/23 07/24/23 tablet,extended release Previous Rx's ?Medication ?Instructions ?Recorded allopurinol 100 mg tablet 100 mg PO QDAY #30 tabs 06/03/23 hydralazine 25 mg tablet 50 mg (2 x 25 mg) PO TID #90 tabs 06/03/23 sevelamer carbonate 800 mg tablet 800 mg PO QDAY #30 tabs 06/03/23 sodium citrate-citric acid 500 30 ml PO TID #600 mL 06/03/23 mg-334 mg/5 mL oral solution hydrocodone 5 mg-acetaminophen 325 1 tab PO Q6H PRN pain #10 tabs 12/09/24 mg tablet Allergies Allergy/AdvReac Type Severity Reaction Status Date / Time benazepril Allergy Severe Rash Verified 02/27/17 19:06 ceftriaxone sodium Allergy Severe Rash Verified 02/27/17 19:06 Cephalosporins Allergy Severe Rash Verified 02/27/17 19:06 clindamycin Allergy Severe Rash Verified 02/27/17 19:06 codeine Allergy Severe Rash Verified 02/27/17 19:06 erythromycin base Allergy Severe Rash Verified 02/27/17 19:06 Penicillins Allergy Severe Rash Verified 02/27/17 19:06 Sulfa (Sulfonamide Allergy Severe Rash Verified 02/27/17 19:06 Antibiotics) sulfamethoxazole Allergy Severe Rash Verified 02/27/17 19:06 trimethoprim Allergy Severe Rash Verified 02/27/17 19:06 Review of Systems Review of Systems Systems Reviewed: All systems reviewed, normal except as documented Past Medical History Past Medical History NEUROLOGIC: Negative Neurological Disorders CARDIAC: Positive Cardiac Disorders, Hypercholesterolemia, Congestive Heart Failure and Hypertension RESPIRATORY: Positive Chronic Obstructive Pulmonary Disease (COPD) GASTROINTESTINAL: Negative Gastrointestinal Disorders GENITOURINARY: Negative Genitourinary Disorders or Renal Disease MUSCULOSKELETAL: Positive Musculoskeletal Disorders and Gout ENDOCRINE: Positive Diabetes Mellitus Type 2 and Hypothyroidism; Negative Diabetes Mellitus Type 1 HEMATOLOGIC: Negative Blood Disorders PSYCHO/SOCIAL: Positive Depression and Anxiety OTHER HISTORY: Positive Blood Transfusions; Negative Autoimmune Disease Social History SMOKING STATUS: Unknown if ever smoked SECOND HAND EXPOSURE: No SUBSTANCE USE: does not use ED Exam Narrative Physical exam: Generally patient is alert and in no obvious distress smelling of cigarette smoke, heart regular rate and rhythm, chest shows a right upper chest Vas-Cath in place, lungs show distant breath sounds bilaterally, patient has tenderness to the superior portion of the left hip and iliac crest. No shortening or external rotation to the left lower extremity, extremities show no edema, neurologic exam no focal motor deficits. Glascow Coma Scale is 15. Course Quality Measures none Orders Category Date Time Status XR hip LT w pelvis 2-3V Stat Exams 12/09/24 00:53 Taken BMP [Basic Metabolic Panel] Stat Lab 12/09/24 01:04 Completed CBC Stat Lab 12/09/24 01:04 Completed Morphine* Inj Med 12/09/24 00:54 Discontinued 4 mg IM X1 ONE Vital Signs Vital signs: Vital Signs Temperature 97.6 F 10/29/25 23:53 Pulse Rate 64 12/08/24 23:53 Respiratory Rate 19 12/08/24 23:53 Blood Pressure 154/87 H 12/08/24 23:53 Pulse Oximetry (%) 91 L 12/08/24 23:53 Oxygen Delivery Method Room Air 12/08/24 23:53 Discharge Plan Plan Patient Disposition: HOME (Self Care) Prescriptions/Referrals Prescriptions/Med Rec: New hydrocodone-acetaminophen 5-325 mg tablet 1 tab PO Q6H MDD 4 PRN (Reason: pain) Qty: 10 0RF No Action furosemide 80 MG tablet 80 mg PO QDAY Qty: 0 omeprazole 20 mg capsule,delayed release(DR/EC) 20 mg PO QDAY Patient Comments: TAKE ONE TABLET BY MOUTH EVERY DAY ergocalciferol (vitamin D2) 1,250 mcg (50,000 unit) capsule 1,250 mcg PO QWEEK Patient Comments: TAKE ONE CAPSULE BY MOUTH ONCE A WEEK Jardiance 10 mg tablet 10 mg PO QAM Patient Comments: TAKE ONE TABLET BY MOUTH EVERY MORNING albuterol sulfate [Proventil HFA] 6.7 GM HFA aerosol inhaler 1 puff Inhalation Q6HR PRN (Reason: SHORTNESS OF BREATH) levothyroxine 75 mcg tablet 75 mcg PO QMORNING Patient Comments: TAKE ONE TABLET BY MOUTH EVERY MORNING FOR THYROID potassium chloride 8 mEq tablet extended release 8 meq PO 3XD Patient Comments: TAKE ONE TABLET BY MOUTH THREE TIMES DAILY WITH FOOD gemfibrozil 600 mg tablet 600 mg PO 2XD Patient Comments: TAKE ONE TABLET BY MOUTH TWICE DAILY FOR CHOLESTEROL allopurinol 100 mg Tablet 100 mg PO QDAY Qty: 30 0RF sodium citrate-citric acid 500-334 mg/5 mL Solution 30 ml PO TID Qty: 600 0RF hydralazine 25 mg Tablet 50 mg PO TID Qty: 90 0RF sevelamer carbonate 800 mg tablet 800 mg PO QDAY Qty: 30 0RF Rx Instructions: must administer with a meal/food Problem List Clinical Impression: Arthralgia of hip, left Patient/Caregiver Discharge Instructions Education Materials: ED Arthralgia Additional Instructions: Limited number of [place] as prescribed. Continue all current medications. Keep your dialysis appointments. Print Language: Mohawk Stand Alone Forms: Aruna Award Info., Patient Portal Info Letter MDM Narrative MDM hospital course (for use when minimal MDM required): Scribe Attestation: 12/09/24 - Moni Patel am scribing for and in the presence of Dr. Chang. Patient is not anemic. Potassium is normal. Patient is scheduled for dialysis this morning. X-ray of the left hip and pelvis showed no acute fracture. Patient received 4 mg of morphine IM which resulted in mildly erythematous rash to the chest. It is slightly pruritic. No swelling to the mouth. No unusual shortness of breath. Patient has a history of oxygen dependent COPD as well as dialysis dependent renal failure and CHF and hyperkalemia in the past. Clinical Information Provided by: patient Medical Records reviewed [facility] (Per chart review, patient was seen here on 04/05/24 for CHF.) and EMS Meds/Rx considered, not ordered None Labs/Rad/Tests considered, not ordered None Chronic Illness/Social Conditions Explain: Hx COPD, CHF, ESRD on HD T//Fri followed by Dr. Rodriguez, HTN, DM Labs Labs: interpreted by me Imaging Imaging interpretation: interpreted by me Imaging Interpretation(s): See MDM. Medication Administration(s) Medication Administration History Discontinued Medications Morphine Sulfate (Morphine Sulf Inj 4 Mg/Ml Vial) 4 mg IM X1 ONE Stop: 12/09/24 00:55 Last Admin: 12/09/24 01:11 Dose: 4 mg Documented By: DT see above Diagnosis Differential Diagnosis ED Complaint MDM: See MDM
--- NOTE | 2024-12-09 00:53 | XR_ITS ---
Examination: Left hip AP, lateral, AP pelvis 3 views Technique: Hip AP lateral, AP pelvis, 3 views Exam date and time: December 09, 2024, 0053 hours INDICATIONS: Onset left hip pain today, no injury FINDINGS: Severe osteopenia Moderate narrowing right and left hip joints No hip fractures or dislocations Bones of the pelvis intact Heavy vascular calcification IMPRESSION: Moderate narrowing right and left hip joints Severe osteopenia .
[2024-12-09] MEDS: MORPHINE SULF INJ 4 MG/ML VIAL IM (01:11)
[2024-12-09 01:21] LABS: Basophils # (Auto) 0.1 Thou/mm3 (0.0-0.2); Basophils % (Auto) 1 % (0-2.5); Eosinophils # (Auto) 0.2 Thou/mm3 (0.0-0.5); Eosinophils % (Auto) 2 % (0-10); Hematocrit 42.6 % (36.0-46.0); Hemoglobin 14.3 g/dL (12.0-16.0); Immature Granulocytes Auto 0.03 Thou/mm3 (0.00-0.00); Lymphocytes # (Auto) 2.4 Thou/mm3 (1.0-4.8); Lymphocytes % (Auto) 23 % (10-50); Mean Corpuscular HGB Conc 33.6 g/dl (31.0-37.0); Mean Corpuscular Hemoglobin 31.2 pg (25.0-35.0); Mean Corpuscular Volume 93 fL (80-100); Monocytes # (Auto) 0.7 Thou/mm3 (0.0-0.8); Monocytes % (Auto) 6 % (0-12); Neutrophils # (Auto) 7.1 Thou/mm3 (1.8-7.7); Neutrophils % (Auto) 68 % (37-80); Nucleated Red Blood Cell # 0.00 Thou/mm3 (0.00-0.00); Nucleated Red Blood Cell % 0 /100 WBC (0); Platelet Count 172 Thou/mm3 (140-440); RDW Standard Deviation 48.9 fL (36.4-46.3); Red Blood Count 4.58 Miln/mm3 (4.00-5.20); White Blood Count 10.5 Thou/mm3 (3.6-11.0)
[2024-12-09 01:37] LABS: Anion Gap 17 (7-16); BUN/Creatinine Ratio 6 Ratio (12-20); Blood Urea Nitrogen 36 mg/dL (9-23); Calcium 8.7 mg/dL (8.3-10.6); Carbon Dioxide 24.3 mMol/L (20.0-31.0); Chloride 100 mMol/L (98-107); Creatinine (Component) 5.7 mg/dL (0.6-1.3); Estimated Creatinine Clearance 8.6 mL/min (>60); Glucose 100 mg/dL (74-106); Osmolality,Calculated 289 (275-295); Potassium 3.7 mMol/L (3.4-5.1); Sodium 141 mMol/L (136-145); eGFR 8 See Note
[2024-12-09 02:08] VITALS: BP 174/105; PULSE 65; RESP 18; O2SAT 94
[2024-12-09 02:45] VITALS: BP 170/120; PULSE 70; RESP 14; TEMP 36.8; O2SAT 99
== END 2024-12-09 02:46 | disposition home or self-care (01) ==
LOC: SERX 12-09 02:54
PROVIDERS: Emergency Provider Emergency Medicine
DX: M25.552 Pain in left hip (principal)
CPT/HCPCS: 36415; 73502; 80048; 85025; 96372; 99283; J2270